=== PATIENT | male | born 1985 | race Caucasian/White ===

== ENCOUNTER 2018-04-20 21:31 | Emergency (ER) | payer OTHER ==
[~2018-04-20] VITALS: Ht 177.8 cm; Wt 90.7 kg
[~2018-04-20 21:31] MED LIST: Bactrim Ds Tab1 EACH PO; CLARITIN10 MG PO; Cleocin HCl150 MG PO; Norco 10-325 T1 EACH PO; Prednisone20 MG PO; Xopenex Hfa15 GM INH; ZYRTEC10 MG PO; [UNRECOGNIZED DRUG - REMARK]
[2018-04-21] MEDS ORDERED: Acular LS 0.4% 55 ML RIGHTEYE (00:42)
[2018-04-21] MEDS ORDERED: ERYT1OIN LEFTEYE (00:42)
== END 2018-04-21 01:23 | disposition home or self-care (01) ==
LOC: ER 21:31
DX: S05.02XA Injury of conjunctiva and corneal abrasion without foreign body, left eye, initial encounter (principal); F17.210 Nicotine dependence, cigarettes, uncomplicated; Z91.048 Other nonmedicinal substance allergy status; X58.XXXA Exposure to other specified factors, initial encounter
CPT/HCPCS: 99282

== ENCOUNTER 2019-03-14 08:57 | Emergency (ER) | payer SELFPAY ==
[~2019-03-14] VITALS: Ht 180.3 cm; Wt 90.7 kg
[~2019-03-14 08:57] MED LIST changes: +Acular LS 0.4% 55 ML RIGHTEYE; +ERYT1OIN LEFTEYE
[2019-03-14 10:38] LABS: BASOPHILS ABSOLUTE AUTO 0.03 K/mm3 (0.00-0.23); BASOPHILS PERCENT AUTO 1 % (0-2); EOSINOPHILS ABSOLUTE AUTO 0.22 K/mm3 (0.00-0.68); EOSINOPHILS PERCENT AUTO 4 % (0-6); Hematocrit 52.3 % (37.0-53.0); Hemoglobin 17.4 g/dL (13.5-17.5); IMMATURE GRAN ABSOLUTE AUTO 0.03 K/mm3 (0.00-0.10); IMMATURE GRAN PERCENT AUTO 1 % (0-1); LYMPHOCYTES ABSOLUTE AUTO 1.53 K/mm3 (0.84-5.20); LYMPHOCYTES PERCENT AUTO 27 % (21-46); MONOCYTES ABSOLUTE AUTO 0.99 K/mm3 (0.16-1.47); MONOCYTES PERCENT AUTO 17 % (4-13); Mean Corpuscular HGB 29.9 pg (26.0-34.0); Mean Corpuscular HGB Conc 33.3 g/dL (31.5-36.5); Mean Corpuscular Volume 90 fL (80-100); Mean Platelet Volume 10.4 fL (9.1-12.4); NEUTROPHILS ABSOLUTE AUTO 2.93 K/mm3 (1.96-9.15); NEUTROPHILS PERCENT AUTO 51 % (41-73); Platelet Count 205 K/mm3 (150-400); RDW Coefficient Variation 12.9 % (11.7-14.2); RDW Standard Deviation 42.4 fL (35.1-46.3); Red Blood Cell Count 5.82 M/mm3 (4.30-5.90); White Blood Cell Count 5.73 K/mm3 (4.00-11.30)
[2019-03-14 10:56] LABS: Alanine Aminotransfer (ALT/SGP 83 U/L (12-78); Albumin, Blood 3.8 g/dL (3.4-5.0); Alk Phos 88 U/L (50-136); Anion Gap 8 mmol/L (6-16); Aspartate Aminotrans (AST/SGOT 70 U/L (12-37); Bilirubin, Total 0.5 mg/dL (0.1-1.0); Blood Urea Nitrogen 17 mg/dL (8-24); Bun/Creatinine Ratio 18.8 (12.0-20.0); CO2, Blood 24 mmol/L (21-32); Calcium, Blood 8.8 mg/dL (8.5-10.1); Chloride, Blood 106 mmol/L (98-108); Glomerular Filtration Rate >60 (60-); Glucose, Blood 75 mg/dL (70-99); Potassium, Blood 5.8 mmol/L (3.5-5.5); Sodium, Blood 138 mmol/L (136-145); Total Protein, Blood 7.8 g/dL (6.4-8.2)
[2019-03-14 12:41] LABS: Anion Gap 7 mmol/L (6-16); Blood Urea Nitrogen 17 mg/dL (8-24); Bun/Creatinine Ratio 17.7 (12.0-20.0); CO2, Blood 26 mmol/L (21-32); Calcium, Blood 8.4 mg/dL (8.5-10.1); Chloride, Blood 109 mmol/L (98-108); Creatinine, Blood 0.96 mg/dL (0.60-1.20); Glomerular Filtration Rate >60 (60-); Glucose, Blood 75 mg/dL (70-99); Potassium, Blood 4.2 mmol/L (3.5-5.5); Sodium, Blood 142 mmol/L (136-145)
[2019-03-14] MEDS ORDERED: SACC250C PO (12:45)
== END 2019-03-14 12:53 | disposition home or self-care (01) ==
LOC: ER 08:57
PROVIDERS: Physician Assistant
DX: K52.9 Noninfective gastroenteritis and colitis, unspecified (principal); J45.909 Unspecified asthma, uncomplicated; F17.210 Nicotine dependence, cigarettes, uncomplicated; Z91.048 Other nonmedicinal substance allergy status
CPT/HCPCS: 36415; 80048; 80053; 83690; 85025; 96374; 99283-25; J2405; J7030

== ENCOUNTER 2019-12-16 02:25 | Emergency (ER) | payer SELFPAY ==
[~2019-12-16] VITALS: Ht 177.8 cm; Wt 90.7 kg
[~2019-12-16 02:25] MED LIST changes: +SACC250C PO
== END 2019-12-16 03:36 | disposition home or self-care (01) ==
LOC: ER 02:25
DX: S49.92XA Unspecified injury of left shoulder and upper arm, initial encounter (principal); J45.909 Unspecified asthma, uncomplicated; F17.210 Nicotine dependence, cigarettes, uncomplicated; Z91.048 Other nonmedicinal substance allergy status; V86.99XA Unspecified occupant of other special all-terrain or other off-road motor vehicle injured in nontraffic accident, initial encounter
CPT/HCPCS: 73030; 96372; 99283-25; A9270; J1885

== ENCOUNTER 2022-09-10 16:30 | Emergency (ER) | payer OTHER | END 2022-09-10 21:29 | disposition home or self-care (01) | DX: R07.9 Chest pain, unspecified (principal); F17.210 Nicotine dependence, cigarettes, uncomplicated; Z91.09 Other allergy status, other than to drugs and biological substances ==

== ENCOUNTER → 2024-01-15 | Outpatient (CLI) | payer OTHER | LOC: LAB SHORT 13:21 → LAB 13:21 | DX: J02.9 Acute pharyngitis, unspecified (principal) | CPT/HCPCS: 87081 ==

== ENCOUNTER 2024-10-30 09:35 | Day surgery (SDC) | payer OTHER ==
[~2024-10-30] VITALS: Ht 177.8 cm; Wt 89.5 kg
[~2024-10-30 09:35] MED LIST changes: +ALLEGRA ALLERGY60 MG PO; +IBUP200 PO; +THERA-D2000 UNIT PO
[2024-10-30] MEDS ORDERED: ACET325 PO (10:33)
[2024-10-30] MEDS ORDERED: propofoL 50 ML IV ONE (10:49)
[2024-10-30] MEDS ORDERED: Lactated Ringer's 1,000 ML IV ONE (10:58)
[2024-10-30] MEDS ORDERED: CeFAZolin Sodium 2,000 MG VIAL ONE (11:21)
[2024-10-30] MEDS ORDERED: EPINEPhrine HCl 1 MG/ML 1ML Amp ONE (11:32)
[2024-10-30] MEDS ORDERED: Ropivacaine 0.5% HCL/PF 5 MG/ML 30ML Vial ONE (11:33)
[2024-10-30] MEDS ORDERED: propofoL 20 ML IV ONE (11:39)
[2024-10-30] MEDS ORDERED: Midazolam HCl 1MG / ML 2ML Vial ONE (11:39)
[2024-10-30] MEDS ORDERED: FentaNYL Citrate 50 MCG/ML 2 ML Injection ONE ×2 (11:39→12:47)
[2024-10-30] MEDS ORDERED: Ketorolac Tromethamine 30mg Vial ONE (11:53)
[2024-10-30] MEDS ORDERED: Dexamethasone Sod Phos 10 MG/ML 1ML VIAL ONE (11:53)
[2024-10-30] MEDS ORDERED: Ondansetron HCl 2 MG / ML 2ML Vial ONE (11:53)
[2024-10-30] MEDS ORDERED: ePHEDrine Sulfate 50 MG/ML 1ML Injection ONE (12:03)
--- NOTE | 2024-10-30 12:07 | NUR ---
10/30/24 1207 Raúl Angel ROPIVACAINE 0.5% 30 ML MIXED & VERIFED W/ 0.15ML (1MG/ML) EPI, TO MAKE ROPIVACAINE 0.5% 1:200,000 FOR INJECTION AT [facility].
[2024-10-30 13:23] VITALS: BP 123/78
--- NOTE | 2024-10-30 13:26 | NUR ---
10/30/24 1326 Zoraida Muñoz PT UP TO RECLINER, TRANSFERRED WELL. PT'S BROUGHT BACK TO BEDSIDE AT THIS TIME. HAS PT'S DENTURES. PT PLACING UPPER & LOWER DENTURES AT THIS TIME. PT TOLERATING DRINKS OF CLEAR LIQUIDS. VSS, ON RA. PT DENIES PAIN/NAUSEA. SLIGHT NUMBNESS TO FINGERTIPS. NO VISIBLE SIGNS OF DISTRESS NOTED.
[2024-11-02 13:07] LABS: HEPATITIS B SURFACE ANTIGEN Negative (Negative)
[2024-11-04 07:01] LABS: HCV QNT BY NAAT (IU/ML) Not Detected; HCV QNT BY NAAT (LOG IU/ML) Not Detected; HCV QNT BY NAAT INTERP Not Detected (Not Detected)
== END 2024-10-30 14:00 | disposition home or self-care (01) ==
LOC: ORSCSDS 09:35
PROVIDERS: Orthopaedic Surgery
PROC: 01N40ZZ Release Ulnar Nerve, Open Approach (ICD-10-PCS; principal; 2024-10-30 11:00)
DX: M77.12 Lateral epicondylitis, left elbow (principal); F17.210 Nicotine dependence, cigarettes, uncomplicated
CPT/HCPCS: 87340; 87522; J0171; J0690; J1100; J1885; J2250; J2405; J2704; J2795; J3010